=== PATIENT | female | born 1980 | race Caucasian/White ===

== ENCOUNTER 2023-02-07 14:48 | Inpatient (IN) | payer MEDICAID, OTHER ==
[~2023-02-07] VITALS: Ht 149.9 cm; Wt 46.7 kg
[~2023-02-07 14:48] MED LIST: IBUP-974 PO
[2023-02-07 15:04] VITALS: BP 143/72
--- NOTE | 2023-02-07 15:18 | NUR ---
AMBULATED TO BED 9
[2023-02-07] MEDS ORDERED: ACETAMINOPHEN EXTRA STRENGTH 500 MG TAB PO PRN (15:30)
[2023-02-07] MEDS ORDERED: NACL 0.9% 1,000 ML IV ONE (15:30)
[2023-02-07] MEDS ORDERED: ACETAMINOPHEN 100 ML IV ONE (15:30)
[2023-02-07] MEDS ORDERED: KETOROLAC 30 MG/ML VIAL IVP PRN (15:30)
--- NOTE | 2023-02-07 15:43 | NUR ---
ASSUMED PATIENT CARE, NURSING ASSESSMENT COMPLETED.
[2023-02-07] MEDS ORDERED: CEFEPIME 1,000 MG in DEXTROSE 5% 50 ML IV ONE (15:50)
[2023-02-07] MEDS ORDERED: VANCOMYCIN 1,000 MG in DEXTROSE 5% 250 ML IV ONE (15:50)
[2023-02-07] MEDS ORDERED: VANCOMYCIN 1,000 MG VIAL ONE (16:19)
[2023-02-07] MEDS ORDERED: CEFEPIME 1,000 MG VIAL ONE ×2 (16:41→22:19)
[2023-02-07 16:43] LABS: BASOPHILS % (AUTO) 0.3 % (0.0-2.0); HEMATOCRIT 32.7 % (36-48); HEMOGLOBIN 11.2 g/dL (12.0-16.0); LYMPHOCYTES # (AUTO) 1.2 K/uL (2.5-16.5); MEAN CORPUSCULAR HEMOGLOBIN 30 pg (27-31); MEAN CORPUSCULAR HGB CONC 34 g/dL (33-37); MEAN CORPUSCULAR VOLUME 86.9 fL (80-94); MONOCYTES # (AUTO) 0.5 K/uL (0.8-1.0); NEUTROPHILS # (AUTO) 3.6 K/uL (1.8-7.7); NEUTROPHILS % (AUTO) 67.7 % (42.2-75.2); PLATELET COUNT (AUTO) 186 K/uL (140-450); RED BLOOD CELL COUNT(AUTO) 3.77 MIL/uL (4.20-5.40); RED CELL DISTRIBUTION WIDTH 13.3 % (11.6-13.7); WHITE BLOOD COUNT (AUTO) 5.4 K/uL (4.8-10.8)
[2023-02-07 17:36] LABS: ALBUMIN 3.2 g/dL (3.4-5.0); ANION GAP 10.6 (8-16); ASPARTATE AMINOTRANSFERASE 45 U/L (15-37); CHLORIDE 103 mmol/L (98-107); GLUCOSE 93 mg/dL (74-106); POTASSIUM 3.6 mmol/L (3.5-5.1); SODIUM SERUM 137 mmol/L (136-145); TOTAL BILIRUBIN 0.4 mg/dL (0.0-1.0); UREA NITROGEN, BLOOD 12 mg/dL (7-18)
[2023-02-07 17:37] LABS: GFR ARICAN-AMERICAN 78 mL/min (>90)
[2023-02-07] MEDS ORDERED: DOCUSATE SODIUM 100 MG GELCAP PO PRN (18:35)
[2023-02-07] MEDS ORDERED: ACETAMINOPHEN 325 MG TAB PO PRN (18:35)
[2023-02-07] MEDS ORDERED: POTASSIUM CHLORIDE 10 MEQ TABER PO PRN (18:35)
[2023-02-07] MEDS ORDERED: guaiFENesin DM 200/20 MG-10 ML 10 ML UDC PO PRN (18:35)
[2023-02-07] MEDS ORDERED: ONDANSETRON 4 MG/2 ML VIAL IM/IVP PRN (18:35)
[2023-02-07] MEDS: NACL 0.9% 1,000 ML IV SCH (18:35)
[2023-02-07] MEDS ORDERED: ZOLPIDEM 5 MG TAB PO PRN (18:35)
[2023-02-07] MEDS ORDERED: NIFE30TE5 PO (18:54)
[2023-02-07] MEDS ORDERED: CEPH-588 PO (18:54)
[2023-02-07] MEDS ORDERED: HYDR200T5 PO (18:54)
[2023-02-07 19:08] LABS: PROTHROMBIN TIME 11.1 secs (10.8-13.4)
[2023-02-07 19:13] LABS: MAGNESIUM 1.5 mg/dL (1.8-2.4); PHOSPHORUS 2.9 mg/dL (2.5-4.9)
--- NOTE | 2023-02-07 19:30 | NUR ---
Assumed care of patient at change of shift. Introduced self to patient who is currently sitting up in bed eating. Iv site to RAC patent and intact currently receiving iv fluids 0.9% NS. Bed to low position sr up. continue to monitor. Patient noted to have low b/p 89/54 hr of 110.
--- NOTE | 2023-02-07 20:14 | NUR ---
Report called and given to Wagner BLANC ext [phone] for room 111B. Patient informed of admission and verbalized understanding and reason for admission.
--- NOTE | 2023-02-07 20:45 | NUR ---
RECEIVED PATIENT FROM ER NURSE VIA [facility] FOR CONTINUITY OF CARE. PATIENT IS ALERT ORIENTED X 4. ADMITTED FOR GANGRENOUS LEFT TOE. PIV IANTACT AND PATENT . NO COMPLAIN OF PAIN AT THIS TIME
[2023-02-07] MEDS: CEFEPIME 1,000 MG in DEXTROSE 5% 50 ML IV SCH (21:00)
--- NOTE | 2023-02-07 21:00 | NUR ---
Patient will be admitted to care of [facility]. Admited to tele. Will go to room 111B. Belongings list completed. Report to rafal.
[2023-02-07] MEDS: HYDROcodone/APAP 7.5/325 MG 1 TAB PO PRN (21:39)
[2023-02-08] VITALS: BP 89/45
[2023-02-08 01:27] LABS: APPEARANCE,URINE CLEAR (CLEAR); BILIRUBIN,URINE NEGATIVE (NEGATIVE); BLOOD, URINE 2+ (NEGATIVE); COLOR,URINE YELLOW (YELLOW); LEUKOCYTE ESTERASE ,URINE NEGATIVE (NEGATIVE); NITRITE, URINE NEGATIVE (NEGATIVE); UGLUCOSE NEGATIVE (NEGATIVE)
[2023-02-08 01:42] LABS: BARBITURATE, URINE NEGATIVE ng/ml (NEG <=200); BENZODIAZEPINE, URINE NEGATIVE ng/mL (NEG <=200); CANNABINOID, URINE NEGATIVE ng/mL (NEG <=50); COCAINE, URINE NEGATIVE ng/mL (NEG <=300); OPIATE, URINE POSITIVE ng/mL (NEG <=2000); PHENCYCLIDINE SCREEN,URINE NEGATIVE ng/mL (NEG <=25)
[2023-02-08 01:44] LABS: WBC,URINE 0-5 /HPF (0-5)
[2023-02-08 01:45] LABS: YEAST,URINE Moderate /HPF (None Seen)
[2023-02-08 04:00] VITALS: BP 91/46
[2023-02-08] MEDS: HYDROcodone/APAP 7.5/325 MG 1 TAB PO PRN ×4 (05:10→20:28)
[2023-02-08 06:29] LABS: BASOPHILS % (AUTO) 0.4 % (0.0-2.0); EOSINOPHILS % (AUTO) 0.1 % (0.0-4.0); HEMATOCRIT 28.6 % (36-48); HEMOGLOBIN 9.8 g/dL (12.0-16.0); LYMPHOCYTES # (AUTO) 0.7 K/uL (2.5-16.5); LYMPHOCYTES % (AUTO) 19.3 % (20.5-51.1); MEAN CORPUSCULAR HEMOGLOBIN 30 pg (27-31); MEAN CORPUSCULAR HGB CONC 34 g/dL (33-37); MEAN CORPUSCULAR VOLUME 88.2 fL (80-94); MONOCYTES # (AUTO) 0.2 K/uL (0.8-1.0); MONOCYTES % (AUTO) 6.6 % (1.7-9.3); NEUTROPHILS # (AUTO) 2.5 K/uL (1.8-7.7); NEUTROPHILS % (AUTO) 73.6 % (42.2-75.2); PLATELET COUNT (AUTO) 150 K/uL (140-450); RED BLOOD CELL COUNT(AUTO) 3.25 MIL/uL (4.20-5.40); RED CELL DISTRIBUTION WIDTH 13.4 % (11.6-13.7); WHITE BLOOD COUNT (AUTO) 3.4 K/uL (4.8-10.8)
--- NOTE | 2023-02-08 07:18 | NUR ---
ENDORSED PT TO AM NURSE FOR CONTINUITY OF CARE. PT IS STABLE
--- NOTE | 2023-02-08 07:19 | NUR ---
RECEIVED PT FROM SCOURING PADS SUPERVISOR NURSE FOR CONTINUITY OF CARE. PT IS AWAKE, AOX4 AND ABLE TO VERBALIZE NEEDS. RESPIRATIONS ARE EVEN AND UNLABORED ON RA. IV ON R AC 20G INFUSING NS @60CC/HR. NO DISTRESS NOTED, DENIES ANY PAIN. CALL LIGHT WITHIN REACH, ALL SAFETY PRECAUTIONS IN PLACE.
[2023-02-08 08:00] VITALS: BP 105/64
[2023-02-08 08:24] LABS: ANION GAP 12.6 (8-16); CREATININE 0.7 mg/dL (0.6-1.3); POTASSIUM 3.6 mmol/L (3.5-5.1)
--- NOTE | 2023-02-08 08:55 | NUR ---
PATIENT HAS BEEN SCREENED AND CATEGORIZED LOW NUTRITION RISK. PATIENT WILL BE SEEN WITHIN 7 DAYS OF ADMISSION. 02/08/23-02/14/[address] REVIEWED BY GLENN MICHEL [address]
[2023-02-08] MEDS ORDERED: PANTOPRAZOLE 40 MG TABEC PO SCH (09:00)
[2023-02-08] MEDS ORDERED: MAGNESIUM OXIDE 400 MG TAB PO SCH (09:00)
[2023-02-08] MEDS ORDERED: VANCOMYCIN PER PHARMACY MC SCH (09:00)
[2023-02-08] MEDS: CEFEPIME 1,000 MG in DEXTROSE 5% 50 ML IV SCH ×2 (09:00→20:08)
--- NOTE | 2023-02-08 09:15 | NUR ---
WOUND CARE NOTE: WOUNDS ASSESSMENT DONE TO THIS 42 Y/0 PT. 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 PER PT. SHE AMA FROM [facility] BECAUSE "i DON'T TRUST THE DOCTOR THERE AND THEY WANT TO CHOPPED OFF MY TOE." POC DISCUSSED WITH PT, ENCOURAGE PT. TO FOLLOW DOCTOR'S ORDER. WOUND CARE DISCUSSED PT. VERBALIZES UNDERSTAND AND PER PT. SHE CAN DO WOUND CARE WITHOUT DIFFICULTLY. -RIGHT 3RD FINGER 1X1 CM 100% BROWN STABLE SCAB. WARM TO TOUCH -LEFT INDEX FINGER 0.5X0.5CM BROWN DISCOLORATION SKIN INTACT. -LEFT HALLUX 3X2CM BLACK STABLE NECROTIC TISSUE, DRY, GORDON- WOUND SKIN RED INTACT, PAIN 1/10 -RIGHT HALLUX 0.5X0.5CM BLACK STABLE NECROTIC TISSUE, DRY, GORDON- WOUND SKIN RED INTACT, PAIN 1/10 RECOMMENDATIONS: -PAINT FINGERS AND TOES SCABS AND NECROTIC TISSUE WITH BETADINE SOLUTION BID AND DANIEL
[2023-02-08] MEDS ORDERED: VANCOMYCIN 750 MG in DEXTROSE 5% 250 ML IV SCH (10:00)
[2023-02-08] MEDS: NACL 0.9% 1,000 ML IV SCH (11:15)
[2023-02-08 12:00] VITALS: BP 101/55
[2023-02-08] MEDS: GAUZE TP SCH (13:01)
[2023-02-08 16:00] VITALS: BP 114/59
--- NOTE | 2023-02-08 19:09 | NUR ---
ENDORSED PT TO JIG MILL OPERATOR NURSE FOR CONTINUITY OF CARE. PT IS STABLE.
--- NOTE | 2023-02-08 19:10 | NUR ---
RECEIVED PT IN BED AWAKE, ALERT AND ORIENTED X 4. DENIES PAIN. NO ACUTE RESPIRATORY DISTRESS. IVF INFUSING WELL ORDERED. SKIN WARM AND DRY TO TOUCH. SAFETY PRECAUTIONS IN PLACE, CALL LIGHT WITHIN REACH.
[2023-02-08 19:52] VITALS: BP 121/65
--- NOTE | 2023-02-08 22:17 | NUR ---
PROVIDED JUICE AND CRACKERS PER PT'S REQUEST.
[2023-02-09] VITALS: BP 123/68
--- NOTE | 2023-02-09 | NUR ---
VITAL SIGNS TAKEN AND DOCUMENTED, VS STABLE. DENIES PAIN AT THIS TIME. CALL LIGHT WITHIN REACH.
[2023-02-09] MEDS: HYDROcodone/APAP 7.5/325 MG 1 TAB PO PRN (00:31)
[2023-02-09] MEDS: GAUZE TP SCH (00:32)
--- NOTE | 2023-02-09 01:00 | NUR ---
PATIENT CALLED SANAM SHE WANTS TO SIGN AMA, PER PT SHE CANNOT STAY ANY LONGER. CALL PLACED TO DR. PERRY TO INFORM MD. Addendum: 02/09/23 at 0116 by Shawnee Martínez RN EXPLAINED THE RISKS AND BENEFITS OF STAYING IN THE HOSPITAL. PATIENT VERBALIZED UNDERSTANDING BUT STILL REFUSED TO STAY.
--- NOTE | 2023-02-09 01:10 | NUR ---
PATIENT SIGNED AMA, REMOVED IV WITH INTACT CANNULA. REMOVED CLUB ROOM ATTENDANT. ALL BELONGINGS TAKEN BY PATIENT.
== END 2023-02-09 01:10 | disposition left against medical advice (07) | DRG 720 ==
LOC: MED 14:48 → MTU 18:39
PROVIDERS: ADMIT Student in an Organized Health Care Education/Training Program; ATTEND Student in an Organized Health Care Education/Training Program
DX: A41.9 Sepsis, unspecified organism (principal); E44.1 Mild protein-calorie malnutrition; I96 Gangrene, not elsewhere classified; N39.0 Urinary tract infection, site not specified; L03.031 Cellulitis of right toe; Z53.29 Procedure and treatment not carried out because of patient's decision for other reasons; E83.42 Hypomagnesemia; F15.10 Other stimulant abuse, uncomplicated; E86.0 Dehydration; Z20.822 Contact with and (suspected) exposure to COVID-19; R74.01 Elevation of levels of liver transaminase levels; Z59.00 Homelessness unspecified; Z68.20 Body mass index [BMI] 20.0-20.9, adult
CPT/HCPCS: 36415; 71045; 73130; 73630; 80048; 80053; 80305; 81001; 83605; 83735; 84100; 84484; 85025; 85610; 85651; 85730; 86140; 87040; 87081; 87086; 93005; 96361; 96365; 96368; 96375; 99285; J0692; J1885; J3370; J7060; Q0092